=== PATIENT | female | born 1970 | race African-American/Black ===

== ENCOUNTER 2017-01-07 23:46 | Emergency (ER) | payer OTHER ==
[~2017-01-07] VITALS: Ht 165.1 cm; Wt 98.1 kg
[2017-01-08] MEDS ORDERED: DIPHENHYDRAMINE 50 MG/ML, 1ML IVPush ONE
[2017-01-08] MEDS ORDERED: SODIUM CHLORIDE 0.9% 1,000 ML IV ONE
[2017-01-08] MEDS ORDERED: SODIUM CHLORIDE FLUSH 10ML SYR IVF ONE
[2017-01-08 00:22] LABS: PATH.CAST-FLAG NOT PRESENT; SPERM-FLAG NOT PRESENT; SRC-FLAG NOT PRESENT; XTAL-FLAG NOT PRESENT; YLC-FLAG NOT PRESENT
[2017-01-08 00:33] LABS: ASPARTATE AMINO TRANSFERASE 12 U/L (15-37); BLOOD UREA NITROGEN 6 mg/dL (7-18)
[2017-01-08 00:42] LABS: DIFF TOTAL CELLS COUNTED 100 CELL DIFF
[2017-01-08 00:46] LABS: LARGE PLATELETS 1+; VERIFY COUNTS? YES
[2017-01-08] MEDS ORDERED: OMNIPAQUE 350 MG/ML, 100ML BOTTLE ONE (01:24)
[2017-01-08 02:06] VITALS: BP 141/78
== END 2017-01-08 02:49 | disposition home or self-care (01) ==
LOC: ED 23:56
DX: D21.9 Benign neoplasm of connective and other soft tissue, unspecified (principal); R10.84 Generalized abdominal pain
CPT/HCPCS: 36415; 74177; 80053; 81001; 83690; 85025; 85610; 93005; 96361; 96374; 99285; J1200; J7030; Q9967